=== PATIENT | male | born 1975 | race Two or more races ===

== ENCOUNTER 2019-01-01 08:25 | Inpatient (IN) | payer MEDICAID ==
[~2019-01-01] VITALS: Ht 170.2 cm; Wt 85.5 kg
[2019-01-01] MEDS ORDERED: LORAZEPAM 2MG/ML CPJ IV ONE (09:30)
[2019-01-01] MEDS ORDERED: SODIUM CHLORIDE 0.9% 1000ML BAG (SEPSIS BOLUS) IV ONE (09:30)
[2019-01-01 09:51] LABS: BASOPHILS % 0.3 % (0.0-2.0); EOSINOPHILS % 0.1 % (0.0-5.0); LYMPHOCYTES % 9.6 % (20.0-50.0); MEAN CORPUSCULAR HEMOGLOBIN 31.6 pg (28.0-32.0); MEAN CORPUSCULAR VOLUME 92.9 fL (80.0-94.0); MEAN PLATELET VOLUME 9.6 fl (7.4-10.4); MONOCYTES % 4.7 % (2.0-8.0); NEUTROPHILS % 85.3 % (40.0-76.0); PLATELET 310 x1000/uL (130-400); RED BLOOD CELL COUNT 4.42 mill/uL (4.7-6.1)
[2019-01-01 09:52] LABS: CHLORIDE 108 mEq/L (98-107)
[2019-01-01 09:56] LABS: ETHANOL BLOOD < 10 mg/dL
[2019-01-01] MEDS ORDERED: SODIUM CHLORIDE 0.9% 1,000 ML IV ONE (11:56)
[2019-01-01 12:11] LABS: CLARITY URINE CLEAR (CLEAR); COLOR URINE DARK YELLOW (YELLOW); KETONES URINE 4+ (NEGATIVE); LEUKOCYTE ESTERASE URINE NEGATIVE (NEGATIVE); NITRITE URINE NEGATIVE (NEGATIVE); OCCULT BLOOD URINE NEGATIVE (NEGATIVE); PROTEIN URINE TRACE (NEGATIVE); SPECIFIC GRAVITY URINE 1.037 (1.005-1.030)
[2019-01-01] MEDS ORDERED: CEFTRIAXONE 2 G PREMIX 50 ML IV ONE (12:30)
[2019-01-01] MEDS: VANCOMYCIN 1 G PREMIX 200 ML IV SCH ×2 (12:30→14:00)
[2019-01-01 12:38] LABS: *BARBITURATES SCREEN URINE NEGATIVE (NEGATIVE); *BENZODIAZEPINES SCREEN URINE NEGATIVE (NEGATIVE)
[2019-01-01 12:42] LABS: *AMPHETAMINES SCREEN URINE NEGATIVE (NEGATIVE)
[2019-01-01 12:44] LABS: METHADONE URINE SCREEN NEGATIVE (NEGATIVE)
[2019-01-01 12:45] LABS: *COCAINE SCREEN URINE NEGATIVE (NEGATIVE)
[2019-01-01 12:48] LABS: OPIATES URINE SCREEN NEGATIVE (NEGATIVE)
[2019-01-01 12:49] LABS: CREATINE KINASE 1009 IU/L (39-308)
[2019-01-01 12:49] LABS: CANNABINOID URINE SCREEN NEGATIVE (NEGATIVE); PHENCYCLIDINE URINE SCREEN NEGATIVE (NEGATIVE)
[2019-01-01] MEDS ORDERED: LIDOCAINE HCL 1% 20ML VIAL (Pyxis) INJ ONE (12:49)
[2019-01-01] MEDS ORDERED: ONDANSETRON HCL 4MG/2ML INJ IV PRN (13:45)
[2019-01-01] MEDS ORDERED: MAGNESIUM/ALUMINUM HYDROXIDE/SIMETHICONE 30ML UDC PO PRN (13:45)
[2019-01-01] MEDS ORDERED: ENOXAPARIN 40MG/0.4ML SYR SUBCUT SCH (13:45)
[2019-01-01] MEDS ORDERED: IPRATROPIUM/ALBUTEROL 0.5-3(2.5)MG/3ML NEB INH PRN (13:45)
[2019-01-01] MEDS ORDERED: CLONIDINE 0.1MG TABLET PO PRN (13:45)
[2019-01-01 14:18] LABS: GLUCOSE CSF 55 mg/dL (41-75)
[2019-01-01] MEDS ORDERED: ENOXAPARIN 40MG/0.4ML SYR SUBCUT NR (20:30)
[2019-01-01] MEDS: SODIUM CHLORIDE 0.9% 1,000 ML IV SCH (20:42)
[2019-01-01] MEDS: LORAZEPAM 2MG/ML CPJ IV PRN (21:48)
[2019-01-01 23:05] VITALS: BP 117/74
[2019-01-01 23:55] LABS: CREATINE KINASE MB FRACTION 2.7 ng/mL (0.5-3.6)
[2019-01-02] VITALS: BP 117/74
[2019-01-02] MEDS ORDERED: VANCOMYCIN 2,000 MG in DEXT 5% WATER 500 ML IV SCH (02:00)
[2019-01-02] MEDS: SODIUM CHLORIDE 0.9% 1,000 ML IV SCH (02:39)
[2019-01-02] MEDS: LORAZEPAM 2MG/ML CPJ IV PRN (03:00)
[2019-01-02 04:00] VITALS: BP 115/74
[2019-01-02] MEDS ORDERED: DOCU-138 PO (06:07)
[2019-01-02] MEDS ORDERED: RISP2TAB22 PO (06:07)
[2019-01-02] MEDS ORDERED: CYM20 PO (06:07)
[2019-01-02] MEDS ORDERED: MOM MT (06:07)
[2019-01-02] MEDS ORDERED: CLOZ100T31 PO (06:07)
[2019-01-02] MEDS ORDERED: PALI234D IM (06:07)
[2019-01-02] MEDS ORDERED: ACET-2853 PO (06:07)
[2019-01-02] MEDS ORDERED: TUSSL MT (06:07)
[2019-01-02] MEDS ORDERED: BENZ1TAB7 GT (06:07)
[2019-01-02] MEDS ORDERED: BACL-141 PO (06:07)
[2019-01-02] MEDS ORDERED: HYDR50CA PO (06:07)
[2019-01-02] MEDS ORDERED: MAG-55 MT (06:07)
[2019-01-02] MEDS ORDERED: TRAZ-212 PO (06:07)
[2019-01-02] MEDS ORDERED: DICY20TA11 PO (06:07)
[2019-01-02 06:12] LABS: CHLORIDE 111 mEq/L (98-107)
[2019-01-02 06:22] LABS: LDL CHOLESTEROL 51 mg/dL (5-100)
[2019-01-02 06:23] LABS: CREATINE KINASE 476 IU/L (39-308)
[2019-01-02 06:24] LABS: HDL CHOLESTEROL 31 mg/dL (40-59)
[2019-01-02 06:30] LABS: BASOPHILS % 0.3 % (0.0-2.0); EOSINOPHILS % 0.5 % (0.0-5.0); HEMATOCRIT. 36.8 % (42.0-52.0); HEMOGLOBIN. 12.5 g/dL (14.0-18.0); LYMPHOCYTES % 8.1 % (20.0-50.0); MEAN CORPUSCULAR HEMOGLOBIN 31.5 pg (28.0-32.0); MEAN CORPUSCULAR VOLUME 93.1 fL (80.0-94.0); MEAN PLATELET VOLUME 9.6 fl (7.4-10.4); MONOCYTES % 5.3 % (2.0-8.0); NEUTROPHILS % 85.8 % (40.0-76.0); PLATELET 273 x1000/uL (130-400); RED BLOOD CELL COUNT 3.95 mill/uL (4.7-6.1); RED CELL DISTRIBUTION WIDTH 13.1 % (11.6-14.6)
[2019-01-02 08:00] VITALS: BP 127/61
[2019-01-02] MEDS ORDERED: POTASSIUM CHLORIDE 20MEQ TABLET SR PO NR (08:00)
[2019-01-02] MEDS ORDERED: ENOXAPARIN 40MG/0.4ML SYR SUBCUT SCH (09:00)
[2019-01-02] MEDS ORDERED: VANCOMYCIN 1500MG in DEXTROSE 5% WATER 250ML IV SCH (10:00)
[2019-01-02] MEDS ORDERED: POTASSIUM CHLORIDE INJ 40 MEQ in DEXT 5% WATER 250 ML IV NR (10:30)
[2019-01-02 12:00] VITALS: BP 124/75
[2019-01-02] MEDS ORDERED: CEFTRIAXONE 1 G PREMIX 50 ML IV SCH (13:00)
[2019-01-02] MEDS: DEXT 5%/0.45% NACL 1000ML 1,000 ML IV SCH (13:56)
[2019-01-02 16:00] VITALS: BP 146/69
[2019-01-02] MEDS: ACETAMINOPHEN 650MG SUPP PR PRN (17:42)
[2019-01-02 18:05] LABS: PHOSPHORUS 2.6 mg/dL (2.5-4.9)
[2019-01-02 18:09] LABS: T4 FREE 1.53 ng/dL (0.76-1.46)
[2019-01-02] MEDS: VANCOMYCIN 1250MG in DEXTROSE 5% WATER 250ML IV SCH (18:10)
[2019-01-02 18:19] LABS: FOLIC ACID (FOLATE) SERUM 16.8 ng/mL (>5.38)
[2019-01-02 20:00] VITALS: BP 119/74
[2019-01-03] VITALS (34 sets, daily range): BP systolic 105–152; BP diastolic 60–96
[2019-01-03] MEDS: DEXT 5%/0.45% NACL 1000ML 1,000 ML IV SCH ×3 (02:27→15:30)
[2019-01-03] MEDS: VANCOMYCIN 1250MG in DEXTROSE 5% WATER 250ML IV SCH ×4 (04:18→19:00)
[2019-01-03] MEDS: LORAZEPAM 2MG/ML CPJ IV PRN (08:23)
[2019-01-03] MEDS ORDERED: LORAZEPAM 2MG/ML CPJ IV SCH (08:45)
[2019-01-03] MEDS ORDERED: LORAZEPAM 2MG/ML CPJ IV PRN (09:30)
[2019-01-03] MEDS ORDERED: IPRATROPIUM/ALBUTEROL 0.5-3(2.5)MG/3ML NEB HHN PRN (09:30)
[2019-01-03] MEDS: PROPOFOL 10MG/ML 100ML 100 ML IV PRN ×3 (10:20→20:37)
[2019-01-03 11:14] LABS: BG CARBOXYHEMOGLOBIN 0.6 % (0.5-1.5); BG DEOXYHEMOGLOBIN 5.4 % (0.0-5.0); BG FRACTION INSPIRED OXYGEN 50; BG HCO3 ACT 26.3 mmol/L (22.0-26.0); BG METHEMOGLOBIN 0.4 % (0.0-1.5); BG OXYGEN SATURATION 94.5 % (92.0-98.5); BG OXYHEMOGLOBIN 93.6 % (94.0-97.0); BG PCO2 44.6 mmHg (35.0-45.0); BG PH 7.389 (7.350-7.450); BG PO2 75.1 mmHg (75.0-100.0); BG SAMPLE SITE RIGHT RADIAL; BG TIDAL VOLUME(mL) 500 mL; BG VENT MODE VENT - A/C; BG VENT RATE 12 set
[2019-01-03] MEDS: IPRATROPIUM/ALBUTEROL 0.5-3(2.5)MG/3ML NEB HHN SCH ×3 (12:25→20:45)
[2019-01-03 12:36] LABS: BASOPHILS % 0.4 % (0.0-2.0); EOSINOPHILS % 0.8 % (0.0-5.0); HEMATOCRIT. 38.1 % (42.0-52.0); HEMOGLOBIN. 13.2 g/dL (14.0-18.0); LYMPHOCYTES % 14.3 % (20.0-50.0); MEAN CORPUSCULAR HEMOGLOBIN 31.9 pg (28.0-32.0); MEAN CORPUSCULAR VOLUME 92.3 fL (80.0-94.0); MEAN PLATELET VOLUME 9.4 fl (7.4-10.4); MONOCYTES % 5.9 % (2.0-8.0); NEUTROPHILS % 78.6 % (40.0-76.0); PLATELET 274 x1000/uL (130-400); RED BLOOD CELL COUNT 4.13 mill/uL (4.7-6.1); RED CELL DISTRIBUTION WIDTH 12.9 % (11.6-14.6)
[2019-01-03 12:39] LABS: CHLORIDE 105 mEq/L (98-107)
[2019-01-03] MEDS ORDERED: POTASSIUM CHLORIDE 20MEQ/PACKET NG SCH (13:45)
[2019-01-03] MEDS ORDERED: VECURONIUM BROMIDE 10 MG/VIAL IV ONE (14:10)
[2019-01-03] MEDS ORDERED: ETOMIDATE 2MG/ML 10ML VIAL IV ONE (14:10)
[2019-01-03] MEDS ORDERED: SODIUM CHLORIDE 0.9% 10ML VIAL ONE (14:10)
[2019-01-03] MEDS: CEFTRIAXONE 1 G PREMIX 50 ML IV SCH (15:29)
[2019-01-03] MEDS: VANCOMYCIN 1 G PREMIX 200 ML IV SCH (20:36)
[2019-01-04] VITALS (93 sets, daily range): BP systolic 106–164; BP diastolic 40–104
[2019-01-04] MEDS: IPRATROPIUM/ALBUTEROL 0.5-3(2.5)MG/3ML NEB HHN SCH ×4 (00:20→20:05)
[2019-01-04] MEDS: PROPOFOL 10MG/ML 100ML 100 ML IV PRN ×4 (02:22→19:31)
[2019-01-04] MEDS: DEXT 5%/0.45% NACL 1000ML 1,000 ML IV SCH ×2 (04:00→21:12)
[2019-01-04] MEDS: VANCOMYCIN 1 G PREMIX 200 ML IV SCH ×3 (04:04→21:12)
[2019-01-04 05:19] LABS: HIV SCREEN 4G Non Reactive (Non Reactive)
[2019-01-04 05:42] LABS: BASOPHILS % 0.5 % (0.0-2.0); EOSINOPHILS % 1.9 % (0.0-5.0); HEMATOCRIT. 38.3 % (42.0-52.0); HEMOGLOBIN. 13.3 g/dL (14.0-18.0); LYMPHOCYTES % 14.5 % (20.0-50.0); MEAN CORPUSCULAR HEMOGLOBIN 31.8 pg (28.0-32.0); MEAN CORPUSCULAR VOLUME 91.8 fL (80.0-94.0); MEAN PLATELET VOLUME 9.5 fl (7.4-10.4); MONOCYTES % 6.5 % (2.0-8.0); NEUTROPHILS % 76.6 % (40.0-76.0); PLATELET 248 x1000/uL (130-400); RED BLOOD CELL COUNT 4.17 mill/uL (4.7-6.1); RED CELL DISTRIBUTION WIDTH 12.9 % (11.6-14.6)
[2019-01-04 05:49] LABS: CHLORIDE 104 mEq/L (98-107)
[2019-01-04 05:59] LABS: CREATINE KINASE 190 IU/L (39-308)
[2019-01-04] MEDS ORDERED: POTASSIUM CHLORIDE 20MEQ/PACKET PO SCH (07:15)
[2019-01-04 07:55] LABS: BG BASE EXCESS 3.3 mmol/L (-2.0-2.0); BG CARBOXYHEMOGLOBIN 0.3 % (0.5-1.5); BG DEOXYHEMOGLOBIN 2.7 % (0.0-5.0); BG HCO3 ACT 27.1 mmol/L (22.0-26.0); BG METHEMOGLOBIN 0.2 % (0.0-1.5); BG OXYGEN SATURATION 97.3 % (92.0-98.5); BG OXYHEMOGLOBIN 96.8 % (94.0-97.0); BG PCO2 38.5 mmHg (35.0-45.0); BG PH 7.465 (7.350-7.450); BG PO2 94.9 mmHg (75.0-100.0); BG SAMPLE SITE RIGHT RADIAL; BG TIDAL VOLUME(mL) 500 mL; BG TOTAL HEMOGLOBIN 12.9 g/dL (12.0-18.0); BG VENT MODE VENT - A/C; BG VENT RATE 12 set
[2019-01-04] MEDS: PANTOPRAZOLE SODIUM 40 MG/VIAL IV SCH (08:14)
[2019-01-04] MEDS: ACETAMINOPHEN 325MG TABLET PO PRN (09:24)
[2019-01-04 09:59] LABS: CLARITY URINE CLEAR (CLEAR); COLOR URINE YELLOW (YELLOW); KETONES URINE TRACE (NEGATIVE); LEUKOCYTE ESTERASE URINE NEGATIVE (NEGATIVE); NITRITE URINE NEGATIVE (NEGATIVE); OCCULT BLOOD URINE 1+ (NEGATIVE); PROTEIN URINE NEGATIVE (NEGATIVE); SPECIFIC GRAVITY URINE 1.009 (1.005-1.030)
[2019-01-04] MEDS ORDERED: HYDROMORPHONE HCL/PF 2MG/ML CPJ IV PRN (12:00)
[2019-01-04] MEDS: RISPERIDONE 0.5MG TABLET PO SCH ×2 (12:07→21:12)
[2019-01-04] MEDS: CEFTRIAXONE 1 G PREMIX 50 ML IV SCH (14:16)
[2019-01-04] MEDS: LEVETIRACETAM 500 MG in SODIUM CHLORIDE 0.9% 100 ML IV SCH (21:12)
[2019-01-05] VITALS (92 sets, daily range): BP systolic 98–142; BP diastolic 56–91
[2019-01-05] MEDS: PROPOFOL 10MG/ML 100ML 100 ML IV PRN ×4 (01:04→19:05)
[2019-01-05] MEDS: IPRATROPIUM/ALBUTEROL 0.5-3(2.5)MG/3ML NEB HHN SCH ×4 (01:31→20:29)
[2019-01-05] MEDS: VANCOMYCIN 1 G PREMIX 200 ML IV SCH ×4 (05:41→21:17)
[2019-01-05 06:00] LABS: CHLORIDE 102 mEq/L (98-107)
[2019-01-05 06:07] LABS: HEMATOCRIT. 37.6 % (42.0-52.0); HEMOGLOBIN. 12.9 g/dL (14.0-18.0); MEAN CORPUSCULAR HEMOGLOBIN 31.4 pg (28.0-32.0); MEAN CORPUSCULAR VOLUME 91.7 fL (80.0-94.0); MEAN PLATELET VOLUME 9.6 fl (7.4-10.4); PLATELET 250 x1000/uL (130-400); RED CELL DISTRIBUTION WIDTH 12.9 % (11.6-14.6)
[2019-01-05 06:13] LABS: PHOSPHORUS 3.8 mg/dL (2.5-4.9)
[2019-01-05] MEDS ORDERED: POTASSIUM CHLORIDE 20MEQ/PACKET PO SCH (07:30)
[2019-01-05] MEDS: PANTOPRAZOLE SODIUM 40 MG/VIAL IV SCH (08:22)
[2019-01-05] MEDS: LEVETIRACETAM 500 MG in SODIUM CHLORIDE 0.9% 100 ML IV SCH ×2 (08:23→20:35)
[2019-01-05] MEDS: RISPERIDONE 0.5MG TABLET PO SCH ×2 (08:23→20:35)
[2019-01-05 08:50] LABS: PLATELET ESTIMATE NORMAL
[2019-01-05 09:06] LABS: WEST NILE VIRUS CSF IGG Negative (Negative)
[2019-01-05 09:26] LABS: BG BASE EXCESS 3.6 mmol/L (-2.0-2.0); BG CARBOXYHEMOGLOBIN 0.8 % (0.5-1.5); BG DEOXYHEMOGLOBIN 7.6 % (0.0-5.0); BG FRACTION INSPIRED OXYGEN 50; BG HCO3 ACT 28.1 mmol/L (22.0-26.0); BG METHEMOGLOBIN 0.2 % (0.0-1.5); BG OXYGEN SATURATION 92.3 % (92.0-98.5); BG OXYHEMOGLOBIN 91.4 % (94.0-97.0); BG PCO2 41.8 mmHg (35.0-45.0); BG PH 7.445 (7.350-7.450); BG PO2 61.7 mmHg (75.0-100.0); BG SAMPLE SITE RIGHT RADIAL; BG TIDAL VOLUME(mL) 500 mL; BG TOTAL HEMOGLOBIN 13.7 g/dL (12.0-18.0); BG VENT MODE VENT - A/C; BG VENT RATE 12 set
[2019-01-05 13:06] LABS: WEST NILE VIRUS CSF IGM Negative (Negative)
[2019-01-05] MEDS: CEFTRIAXONE 1 G PREMIX 50 ML IV SCH (15:05)
[2019-01-05] MEDS: METRONIDAZOLE 500 MG PREMIX 100 ML IV SCH ×2 (16:17→22:53)
[2019-01-06] VITALS (90 sets, daily range): BP systolic 100–165; BP diastolic 53–103
[2019-01-06] MEDS: IPRATROPIUM/ALBUTEROL 0.5-3(2.5)MG/3ML NEB HHN SCH ×4 (02:15→20:45)
[2019-01-06] MEDS: PROPOFOL 10MG/ML 100ML 100 ML IV PRN ×3 (03:06→21:26)
[2019-01-06] MEDS: METRONIDAZOLE 500 MG PREMIX 100 ML IV SCH ×4 (03:43→22:00)
[2019-01-06] MEDS: VANCOMYCIN 1 G PREMIX 200 ML IV SCH ×3 (05:45→21:23)
[2019-01-06 06:15] LABS: BASOPHILS % 0.3 % (0.0-2.0); HEMATOCRIT. 36.1 % (42.0-52.0); HEMOGLOBIN. 12.4 g/dL (14.0-18.0); LYMPHOCYTES % 10.5 % (20.0-50.0); MEAN CORPUSCULAR HEMOGLOBIN 31.9 pg (28.0-32.0); MEAN CORPUSCULAR VOLUME 92.4 fL (80.0-94.0); MEAN PLATELET VOLUME 9.3 fl (7.4-10.4); MONOCYTES % 5.7 % (2.0-8.0); NEUTROPHILS % 81.5 % (40.0-76.0); PLATELET 247 x1000/uL (130-400); RED CELL DISTRIBUTION WIDTH 13.3 % (11.6-14.6)
[2019-01-06 06:28] LABS: CHLORIDE 103 mEq/L (98-107)
[2019-01-06 06:34] LABS: PHOSPHORUS 3.5 mg/dL (2.5-4.9)
[2019-01-06] MEDS ORDERED: POTASSIUM CHLORIDE 20MEQ/PACKET PO SCH (07:30)
[2019-01-06] MEDS ORDERED: FENTANYL CITRATE/PF 500 MCG in SODIUM CHLORIDE 0.9% 40 ML IV PRN (08:00)
[2019-01-06] MEDS ORDERED: MIDAZOLAM HCL 100 MG in DEXT 5% WATER 80 ML IV PRN (08:00)
[2019-01-06 08:21] LABS: BG BASE EXCESS 3.5 mmol/L (-2.0-2.0); BG CARBOXYHEMOGLOBIN 0.6 % (0.5-1.5); BG DEOXYHEMOGLOBIN 1.4 % (0.0-5.0); BG METHEMOGLOBIN 0.2 % (0.0-1.5); BG OXYGEN SATURATION 98.6 % (92.0-98.5); BG OXYHEMOGLOBIN 97.8 % (94.0-97.0); BG PH 7.442 (7.350-7.450); BG PO2 130.6 mmHg (75.0-100.0); BG PRESSURE SUPPORT 14; BG SAMPLE SITE RIGHT RADIAL; BG TIDAL VOLUME(mL) 500 mL; BG TOTAL HEMOGLOBIN 12.3 g/dL (12.0-18.0); BG VENT MODE VENT - SIMV; BG VENT RATE 10 set
[2019-01-06] MEDS: RISPERIDONE 0.5MG TABLET PO SCH ×2 (08:31→21:23)
[2019-01-06] MEDS: PANTOPRAZOLE SODIUM 40 MG/VIAL IV SCH (08:31)
[2019-01-06] MEDS: LEVETIRACETAM 500 MG in SODIUM CHLORIDE 0.9% 100 ML IV SCH ×2 (08:31→21:22)
[2019-01-06] MEDS: CEFTRIAXONE 1 G PREMIX 50 ML IV SCH (14:10)
[2019-01-06 16:18] LABS: TOTAL IRON BINDING CAPACITY 223 ug/dL (250-450)
[2019-01-07] VITALS (89 sets, daily range): BP systolic 100–189; BP diastolic 61–142
[2019-01-07] MEDS: IPRATROPIUM/ALBUTEROL 0.5-3(2.5)MG/3ML NEB HHN SCH ×4 (01:26→21:55)
[2019-01-07] MEDS: METRONIDAZOLE 500 MG PREMIX 100 ML IV SCH ×4 (04:02→21:12)
[2019-01-07] MEDS: PROPOFOL 10MG/ML 100ML 100 ML IV PRN ×3 (04:26→23:42)
[2019-01-07 05:50] LABS: BASOPHILS % 0.3 % (0.0-2.0); EOSINOPHILS % 2.4 % (0.0-5.0); HEMATOCRIT. 36.6 % (42.0-52.0); HEMOGLOBIN. 12.4 g/dL (14.0-18.0); LYMPHOCYTES % 9.1 % (20.0-50.0); MEAN CORPUSCULAR HEMOGLOBIN 31.5 pg (28.0-32.0); MEAN CORPUSCULAR VOLUME 92.6 fL (80.0-94.0); MEAN PLATELET VOLUME 9.5 fl (7.4-10.4); MONOCYTES % 6.6 % (2.0-8.0); NEUTROPHILS % 81.6 % (40.0-76.0); PLATELET 251 x1000/uL (130-400); RED BLOOD CELL COUNT 3.95 mill/uL (4.7-6.1)
[2019-01-07 05:54] LABS: CHLORIDE 103 mEq/L (98-107)
[2019-01-07 06:06] LABS: PHOSPHORUS 2.5 mg/dL (2.5-4.9)
[2019-01-07] MEDS: VANCOMYCIN 1 G PREMIX 200 ML IV SCH ×2 (06:58→14:43)
[2019-01-07 08:18] LABS: BG BASE EXCESS 0.2 mmol/L (-2.0-2.0); BG CARBOXYHEMOGLOBIN 0.2 % (0.5-1.5); BG DEOXYHEMOGLOBIN 3.5 % (0.0-5.0); BG FRACTION INSPIRED OXYGEN 40; BG HCO3 ACT 24.3 mmol/L (22.0-26.0); BG METHEMOGLOBIN 0.3 % (0.0-1.5); BG OXYGEN SATURATION 96.5 % (92.0-98.5); BG PCO2 37.6 mmHg (35.0-45.0); BG PH 7.429 (7.350-7.450); BG PO2 91.4 mmHg (75.0-100.0); BG PRESSURE SUPPORT 12; BG SAMPLE SITE RIGHT BRACHIAL; BG TIDAL VOLUME(mL) 500 mL; BG TOTAL HEMOGLOBIN 12.3 g/dL (12.0-18.0); BG VENT MODE VENT - SIMV; BG VENT RATE 8 set
[2019-01-07] MEDS: DOCUSATE SODIUM 100MG CAPSULE PO SCH ×2 (10:00→21:11)
[2019-01-07] MEDS: DOCUSATE SODIUM SUGAR FREE 100MG/10ML UDC NG SCH (10:12)
[2019-01-07] MEDS: LEVETIRACETAM 500 MG in SODIUM CHLORIDE 0.9% 100 ML IV SCH ×2 (10:12→21:11)
[2019-01-07] MEDS: PANTOPRAZOLE SODIUM 40 MG/VIAL IV SCH (10:12)
[2019-01-07] MEDS: RISPERIDONE 0.5MG TABLET PO SCH ×2 (10:12→21:11)
[2019-01-07] MEDS: CEFTRIAXONE 1 G PREMIX 50 ML IV SCH (13:33)
[2019-01-07] MEDS: ACETYLCYSTEINE 100MG/ML 10% VIAL 4ML INH SCH (14:12)
[2019-01-07] MEDS ORDERED: LIDOCAINE HCL 1% 20ML VIAL (Pyxis) INJ ONE (14:50)
[2019-01-07] MEDS: FERROUS SULFATE 300MG/5ML UDC PO SCH (17:45)
[2019-01-08] VITALS (79 sets, daily range): BP systolic 103–155; BP diastolic 64–97
[2019-01-08] MEDS: IPRATROPIUM/ALBUTEROL 0.5-3(2.5)MG/3ML NEB HHN SCH ×5 (00:57→21:17)
[2019-01-08] MEDS: ACETYLCYSTEINE 100MG/ML 10% VIAL 4ML INH SCH ×3 (00:58→15:09)
[2019-01-08] MEDS: METRONIDAZOLE 500 MG PREMIX 100 ML IV SCH ×4 (03:44→21:57)
[2019-01-08] MEDS: PROPOFOL 10MG/ML 100ML 100 ML IV PRN ×2 (05:38→12:56)
[2019-01-08 06:07] LABS: CHLORIDE 104 mEq/L (98-107)
[2019-01-08 06:11] LABS: BASOPHILS % 0.4 % (0.0-2.0); EOSINOPHILS % 2.8 % (0.0-5.0); HEMATOCRIT. 37.2 % (42.0-52.0); HEMOGLOBIN. 12.7 g/dL (14.0-18.0); MEAN CORPUSCULAR HEMOGLOBIN 31.3 pg (28.0-32.0); MEAN CORPUSCULAR VOLUME 92.2 fL (80.0-94.0); MEAN PLATELET VOLUME 9.4 fl (7.4-10.4); MONOCYTES % 6.7 % (2.0-8.0); NEUTROPHILS % 77.1 % (40.0-76.0); PLATELET 295 x1000/uL (130-400); RED BLOOD CELL COUNT 4.04 mill/uL (4.7-6.1); RED CELL DISTRIBUTION WIDTH 12.8 % (11.6-14.6)
[2019-01-08] MEDS ORDERED: POTASSIUM CHLORIDE 20MEQ/PACKET PO SCH (06:30)
[2019-01-08] MEDS: FERROUS SULFATE 300MG/5ML UDC PO SCH ×3 (07:14→18:57)
[2019-01-08 08:41] LABS: BG BASE EXCESS 5.7 mmol/L (-2.0-2.0); BG CARBOXYHEMOGLOBIN 0.1 % (0.5-1.5); BG DEOXYHEMOGLOBIN 1.2 % (0.0-5.0); BG FRACTION INSPIRED OXYGEN 40; BG HCO3 ACT 30.5 mmol/L (22.0-26.0); BG OXYGEN SATURATION 98.8 % (92.0-98.5); BG OXYHEMOGLOBIN 98.7 % (94.0-97.0); BG PCO2 45.1 mmHg (35.0-45.0); BG PH 7.448 (7.350-7.450); BG PO2 153.1 mmHg (75.0-100.0); BG PRESSURE SUPPORT 12; BG SAMPLE SITE RIGHT RADIAL; BG TIDAL VOLUME(mL) 500 mL; BG TOTAL HEMOGLOBIN 12.5 g/dL (12.0-18.0); BG VENT MODE VENT - SIMV; BG VENT RATE 8 set
[2019-01-08] MEDS: PANTOPRAZOLE SODIUM 40 MG/VIAL IV SCH (08:52)
[2019-01-08] MEDS: LEVETIRACETAM 500 MG in SODIUM CHLORIDE 0.9% 100 ML IV SCH ×2 (08:53→21:18)
[2019-01-08] MEDS: DOCUSATE SODIUM SUGAR FREE 100MG/10ML UDC NG SCH (08:53)
[2019-01-08] MEDS: RISPERIDONE 0.5MG TABLET PO SCH ×2 (08:53→21:18)
[2019-01-08] MEDS: DOCUSATE SODIUM 100MG CAPSULE PO SCH ×2 (09:00→18:58)
[2019-01-08] MEDS: CEFTRIAXONE 1 G PREMIX 50 ML IV SCH (15:23)
[2019-01-09] VITALS (42 sets, daily range): BP systolic 101–153; BP diastolic 65–102
[2019-01-09] MEDS: IPRATROPIUM/ALBUTEROL 0.5-3(2.5)MG/3ML NEB HHN SCH ×6 (00:59→20:42)
[2019-01-09] MEDS: ACETYLCYSTEINE 100MG/ML 10% VIAL 4ML INH SCH ×3 (01:00→20:42)
[2019-01-09] MEDS: PROPOFOL 10MG/ML 100ML 100 ML IV PRN ×3 (04:09→22:44)
[2019-01-09] MEDS: METRONIDAZOLE 500 MG PREMIX 100 ML IV SCH ×4 (04:28→21:44)
[2019-01-09 05:50] LABS: BASOPHILS % 0.6 % (0.0-2.0); EOSINOPHILS % 3.5 % (0.0-5.0); HEMATOCRIT. 37.2 % (42.0-52.0); HEMOGLOBIN. 12.8 g/dL (14.0-18.0); LYMPHOCYTES % 19.2 % (20.0-50.0); MEAN CORPUSCULAR HEMOGLOBIN 31.6 pg (28.0-32.0); MEAN CORPUSCULAR VOLUME 91.9 fL (80.0-94.0); MEAN PLATELET VOLUME 8.9 fl (7.4-10.4); MONOCYTES % 8.3 % (2.0-8.0); NEUTROPHILS % 68.4 % (40.0-76.0); PLATELET 291 x1000/uL (130-400); RED BLOOD CELL COUNT 4.05 mill/uL (4.7-6.1); RED CELL DISTRIBUTION WIDTH 13.1 % (11.6-14.6)
[2019-01-09 05:51] LABS: CHLORIDE 105 mEq/L (98-107)
[2019-01-09 05:57] LABS: PHOSPHORUS 3.1 mg/dL (2.5-4.9)
[2019-01-09] MEDS: FERROUS SULFATE 300MG/5ML UDC PO SCH ×3 (06:38→17:19)
[2019-01-09] MEDS ORDERED: POTASSIUM CHLORIDE 20MEQ/PACKET PO SCH (06:45)
[2019-01-09 08:43] LABS: BG BASE EXCESS 2.3 mmol/L (-2.0-2.0); BG CARBOXYHEMOGLOBIN 0.3 % (0.5-1.5); BG DEOXYHEMOGLOBIN 1.6 % (0.0-5.0); BG FRACTION INSPIRED OXYGEN 40; BG HCO3 ACT 26.4 mmol/L (22.0-26.0); BG METHEMOGLOBIN 0.1 % (0.0-1.5); BG OXYGEN SATURATION 98.4 % (92.0-98.5); BG PH 7.448 (7.350-7.450); BG PO2 127.9 mmHg (75.0-100.0); BG PRESSURE SUPPORT 12; BG SAMPLE SITE LEFT RADIAL; BG TIDAL VOLUME(mL) 500 mL; BG TOTAL HEMOGLOBIN 12.6 g/dL (12.0-18.0); BG VENT MODE VENT - SIMV; BG VENT RATE 8 set
[2019-01-09] MEDS: DOCUSATE SODIUM 100MG CAPSULE PO SCH ×2 (09:00→17:00)
[2019-01-09] MEDS: DOCUSATE SODIUM SUGAR FREE 100MG/10ML UDC NG SCH (09:05)
[2019-01-09] MEDS: PANTOPRAZOLE SODIUM 40 MG/VIAL IV SCH (09:06)
[2019-01-09] MEDS: LEVETIRACETAM 500 MG in SODIUM CHLORIDE 0.9% 100 ML IV SCH ×2 (09:06→21:06)
[2019-01-09] MEDS: RISPERIDONE 0.5MG TABLET PO SCH ×2 (09:06→21:06)
[2019-01-09] MEDS: CEFTRIAXONE 1 G PREMIX 50 ML IV SCH (14:19)
[2019-01-09] MEDS: ENOXAPARIN 40MG/0.4ML SYR SUBCUT SCH (14:20)
[2019-01-09] MEDS: ACETAMINOPHEN 325MG TABLET PO PRN (15:49)
[2019-01-09] MEDS: LACTULOSE 20G/30ML UDC PO PRN (21:06)
[2019-01-10] VITALS (84 sets, daily range): BP systolic 102–153; BP diastolic 58–106
[2019-01-10] MEDS: IPRATROPIUM/ALBUTEROL 0.5-3(2.5)MG/3ML NEB HHN SCH ×6 (00:23→20:41)
[2019-01-10] MEDS: PROPOFOL 10MG/ML 100ML 100 ML IV PRN ×2 (03:37→09:17)
[2019-01-10] MEDS: METRONIDAZOLE 500 MG PREMIX 100 ML IV SCH ×4 (03:37→22:13)
[2019-01-10 05:30] LABS: BASOPHILS % 0.4 % (0.0-2.0); HEMATOCRIT. 36.7 % (42.0-52.0); HEMOGLOBIN. 12.7 g/dL (14.0-18.0); MEAN CORPUSCULAR HEMOGLOBIN 31.7 pg (28.0-32.0); MEAN CORPUSCULAR VOLUME 91.8 fL (80.0-94.0); MEAN PLATELET VOLUME 9.2 fl (7.4-10.4); MONOCYTES % 6.5 % (2.0-8.0); NEUTROPHILS % 82.1 % (40.0-76.0); PLATELET 303 x1000/uL (130-400); RED CELL DISTRIBUTION WIDTH 12.8 % (11.6-14.6)
[2019-01-10 06:17] LABS: CHLORIDE 108 mEq/L (98-107)
[2019-01-10] MEDS: FERROUS SULFATE 300MG/5ML UDC PO SCH ×3 (06:23→17:01)
[2019-01-10 06:25] LABS: PHOSPHORUS 2.5 mg/dL (2.5-4.9)
[2019-01-10] MEDS ORDERED: POTASSIUM CHLORIDE 20MEQ/PACKET PO NR (07:30)
[2019-01-10] MEDS: DOCUSATE SODIUM 100MG CAPSULE PO SCH ×2 (09:00→16:03)
[2019-01-10 09:01] LABS: BG BASE EXCESS 6.2 mmol/L (-2.0-2.0); BG CARBOXYHEMOGLOBIN 0.2 % (0.5-1.5); BG DEOXYHEMOGLOBIN 1.7 % (0.0-5.0); BG FRACTION INSPIRED OXYGEN 40; BG HCO3 ACT 30.7 mmol/L (22.0-26.0); BG METHEMOGLOBIN 0.3 % (0.0-1.5); BG OXYGEN SATURATION 98.3 % (92.0-98.5); BG OXYHEMOGLOBIN 97.8 % (94.0-97.0); BG PCO2 43.8 mmHg (35.0-45.0); BG PH 7.464 (7.350-7.450); BG PO2 142.2 mmHg (75.0-100.0); BG PRESSURE SUPPORT 12; BG SAMPLE SITE RIGHT RADIAL; BG TIDAL VOLUME(mL) 500 mL; BG TOTAL HEMOGLOBIN 13.1 g/dL (12.0-18.0); BG VENT MODE VENT - SIMV; BG VENT RATE 8 set
[2019-01-10] MEDS: LEVETIRACETAM 500 MG in SODIUM CHLORIDE 0.9% 100 ML IV SCH ×2 (09:17→21:11)
[2019-01-10] MEDS: RISPERIDONE 0.5MG TABLET PO SCH ×2 (09:17→21:11)
[2019-01-10] MEDS: DOCUSATE SODIUM SUGAR FREE 100MG/10ML UDC NG SCH (09:17)
[2019-01-10] MEDS: PANTOPRAZOLE SODIUM 40 MG/VIAL IV SCH (09:17)
[2019-01-10] MEDS: ACETYLCYSTEINE 100MG/ML 10% VIAL 4ML INH SCH (09:18)
[2019-01-10] MEDS: ENOXAPARIN 40MG/0.4ML SYR SUBCUT SCH (09:18)
[2019-01-10] MEDS: CEFTRIAXONE 1 G PREMIX 50 ML IV SCH (16:02)
[2019-01-10 21:04] LABS: CLARITY URINE TURBID (CLEAR); COLOR URINE DARK YELLOW (YELLOW); KETONES URINE NEGATIVE (NEGATIVE); LEUKOCYTE ESTERASE URINE 1+ (NEGATIVE); NITRITE URINE NEGATIVE (NEGATIVE); OCCULT BLOOD URINE 3+ (NEGATIVE); PH URINE 6.5 (4.5-8.0); PROTEIN URINE 1+ (NEGATIVE); SPECIFIC GRAVITY URINE 1.021 (1.005-1.030)
[2019-01-11] VITALS (74 sets, daily range): BP systolic 98–155; BP diastolic 60–108
[2019-01-11] MEDS: IPRATROPIUM/ALBUTEROL 0.5-3(2.5)MG/3ML NEB HHN SCH ×7 (00:14→21:11)
[2019-01-11] MEDS: ACETYLCYSTEINE 100MG/ML 10% VIAL 4ML INH SCH ×2 (00:15→21:11)
[2019-01-11] MEDS: METRONIDAZOLE 500 MG PREMIX 100 ML IV SCH ×2 (03:53→10:00)
[2019-01-11 05:51] LABS: BASOPHILS % 0.4 % (0.0-2.0); EOSINOPHILS % 1.7 % (0.0-5.0); HEMATOCRIT. 37.1 % (42.0-52.0); HEMOGLOBIN. 12.7 g/dL (14.0-18.0); LYMPHOCYTES % 14.3 % (20.0-50.0); MEAN CORPUSCULAR HEMOGLOBIN 31.4 pg (28.0-32.0); MEAN CORPUSCULAR VOLUME 92.1 fL (80.0-94.0); MONOCYTES % 7.8 % (2.0-8.0); NEUTROPHILS % 75.8 % (40.0-76.0); PLATELET 319 x1000/uL (130-400); RED BLOOD CELL COUNT 4.03 mill/uL (4.7-6.1)
[2019-01-11] MEDS: FERROUS SULFATE 300MG/5ML UDC PO SCH ×3 (06:03→17:24)
[2019-01-11 06:06] LABS: CHLORIDE 106 mEq/L (98-107)
[2019-01-11 06:20] LABS: PHOSPHORUS 3.1 mg/dL (2.5-4.9)
[2019-01-11] MEDS: DOCUSATE SODIUM 100MG CAPSULE PO SCH ×2 (09:00→15:27)
[2019-01-11] MEDS: RISPERIDONE 0.5MG TABLET PO SCH ×2 (09:59→21:03)
[2019-01-11] MEDS: DOCUSATE SODIUM SUGAR FREE 100MG/10ML UDC NG SCH (09:59)
[2019-01-11] MEDS: PANTOPRAZOLE SODIUM 40 MG/VIAL IV SCH (09:59)
[2019-01-11] MEDS: LEVETIRACETAM 500 MG in SODIUM CHLORIDE 0.9% 100 ML IV SCH ×2 (09:59→21:03)
[2019-01-11] MEDS: ENOXAPARIN 40MG/0.4ML SYR SUBCUT SCH (10:00)
[2019-01-11 11:22] LABS: BG BASE EXCESS 6.3 mmol/L (-2.0-2.0); BG CARBOXYHEMOGLOBIN 0.3 % (0.5-1.5); BG DEOXYHEMOGLOBIN 1.1 % (0.0-5.0); BG HCO3 ACT 30.7 mmol/L (22.0-26.0); BG METHEMOGLOBIN 0.4 % (0.0-1.5); BG OXYGEN SATURATION 98.9 % (92.0-98.5); BG OXYHEMOGLOBIN 98.2 % (94.0-97.0); BG PCO2 43.1 mmHg (35.0-45.0); BG PO2 196.7 mmHg (75.0-100.0); BG SAMPLE SITE RIGHT RADIAL; BG TOTAL HEMOGLOBIN 12.6 g/dL (12.0-18.0); BG VENT MODE T-TUBE
[2019-01-11] MEDS: POLYETHYLENE GLYCOL 3350 (17GM) 1 DOSE PACK PO SCH (12:38)
[2019-01-12] VITALS (85 sets, daily range): BP systolic 104–153; BP diastolic 66–97
[2019-01-12] MEDS: IPRATROPIUM/ALBUTEROL 0.5-3(2.5)MG/3ML NEB HHN SCH ×5 (00:22→21:32)
[2019-01-12] MEDS: ACETYLCYSTEINE 100MG/ML 10% VIAL 4ML INH SCH ×3 (01:20→16:00)
[2019-01-12] MEDS: FERROUS SULFATE 300MG/5ML UDC PO SCH ×3 (06:25→18:04)
[2019-01-12 06:48] LABS: CHLORIDE 106 mEq/L (98-107)
[2019-01-12 06:55] LABS: BASOPHILS % 0.6 % (0.0-2.0); EOSINOPHILS % 1.3 % (0.0-5.0); HEMATOCRIT. 37.5 % (42.0-52.0); LYMPHOCYTES % 10.4 % (20.0-50.0); MEAN CORPUSCULAR HEMOGLOBIN 31.9 pg (28.0-32.0); MEAN CORPUSCULAR VOLUME 91.9 fL (80.0-94.0); MEAN PLATELET VOLUME 8.9 fl (7.4-10.4); MONOCYTES % 6.9 % (2.0-8.0); NEUTROPHILS % 80.8 % (40.0-76.0); PLATELET 346 x1000/uL (130-400); RED BLOOD CELL COUNT 4.08 mill/uL (4.7-6.1)
[2019-01-12] MEDS ORDERED: POTASSIUM CHLORIDE 20MEQ/PACKET PO NR (07:15)
[2019-01-12] MEDS: DOCUSATE SODIUM 100MG CAPSULE PO SCH ×2 (09:00→17:00)
[2019-01-12] MEDS: RISPERIDONE 0.5MG TABLET PO SCH ×2 (10:06→21:06)
[2019-01-12] MEDS: DOCUSATE SODIUM SUGAR FREE 100MG/10ML UDC NG SCH ×2 (10:06→18:04)
[2019-01-12] MEDS: ENOXAPARIN 40MG/0.4ML SYR SUBCUT SCH (10:07)
[2019-01-12] MEDS: PANTOPRAZOLE SODIUM 40 MG/VIAL IV SCH (10:07)
[2019-01-12] MEDS: POLYETHYLENE GLYCOL 3350 (17GM) 1 DOSE PACK PO SCH (10:08)
[2019-01-12] MEDS: LEVETIRACETAM 500 MG in SODIUM CHLORIDE 0.9% 100 ML IV SCH ×2 (13:56→21:06)
[2019-01-12] MEDS ORDERED: ATROPINE SULFATE 1% OPHTH 2ML SL SCH (14:00)
[2019-01-12 17:06] LABS: COXSACKIE B VIRUS TYPE 1 <1:10 (<1:10); COXSACKIE B VIRUS TYPE 2 <1:10 (<1:10); COXSACKIE B VIRUS TYPE 3 <1:10 (<1:10); COXSACKIE B VIRUS TYPE 4 <1:10 (<1:10); COXSACKIE B VIRUS TYPE 5 <1:10 (<1:10)
[2019-01-12] MEDS ORDERED: CEFTRIAXONE 1 G PREMIX 50 ML IV SCH (23:00)
[2019-01-13] VITALS (68 sets, daily range): BP systolic 115–152; BP diastolic 50–102
[2019-01-13] MEDS: IPRATROPIUM/ALBUTEROL 0.5-3(2.5)MG/3ML NEB HHN SCH ×6 (01:20→20:45)
[2019-01-13] MEDS: ACETYLCYSTEINE 100MG/ML 10% VIAL 4ML INH SCH ×2 (01:20→17:46)
[2019-01-13 05:32] LABS: BASOPHILS % 0.5 % (0.0-2.0); CHLORIDE 107 mEq/L (98-107); EOSINOPHILS % 1.4 % (0.0-5.0); HEMATOCRIT. 37.6 % (42.0-52.0); LYMPHOCYTES % 14.8 % (20.0-50.0); MEAN CORPUSCULAR HEMOGLOBIN 31.7 pg (28.0-32.0); MEAN CORPUSCULAR VOLUME 91.9 fL (80.0-94.0); MEAN PLATELET VOLUME 8.6 fl (7.4-10.4); NEUTROPHILS % 77.3 % (40.0-76.0); PLATELET 334 x1000/uL (130-400); RED CELL DISTRIBUTION WIDTH 12.9 % (11.6-14.6)
[2019-01-13 05:41] LABS: PHOSPHORUS 3.4 mg/dL (2.5-4.9)
[2019-01-13] MEDS: FERROUS SULFATE 300MG/5ML UDC PO SCH ×3 (06:16→18:37)
[2019-01-13] MEDS: DOCUSATE SODIUM 100MG CAPSULE PO SCH ×2 (09:00→17:00)
[2019-01-13] MEDS: POLYETHYLENE GLYCOL 3350 (17GM) 1 DOSE PACK PO SCH (09:54)
[2019-01-13] MEDS: PANTOPRAZOLE SODIUM 40 MG/VIAL IV SCH (09:54)
[2019-01-13] MEDS: DOCUSATE SODIUM SUGAR FREE 100MG/10ML UDC NG SCH ×3 (09:54→18:38)
[2019-01-13] MEDS: LEVETIRACETAM 500 MG in SODIUM CHLORIDE 0.9% 100 ML IV SCH ×2 (09:54→21:25)
[2019-01-13] MEDS: ENOXAPARIN 40MG/0.4ML SYR SUBCUT SCH (09:55)
[2019-01-13] MEDS: RISPERIDONE 0.5MG TABLET PO SCH ×2 (09:55→21:25)
[2019-01-13] MEDS ORDERED: ATROPINE SULFATE 1% OPHTH 2ML SL PRN (12:00)
[2019-01-14] VITALS (11 sets, daily range): BP systolic 109–144; BP diastolic 72–89
[2019-01-14] MEDS: IPRATROPIUM/ALBUTEROL 0.5-3(2.5)MG/3ML NEB HHN SCH ×4 (01:19→21:38)
[2019-01-14] MEDS: ACETYLCYSTEINE 100MG/ML 10% VIAL 4ML INH SCH ×2 (01:22→07:32)
[2019-01-14 06:02] LABS: CHLORIDE 108 mEq/L (98-107)
[2019-01-14 06:03] LABS: BASOPHILS % 0.4 % (0.0-2.0); EOSINOPHILS % 0.6 % (0.0-5.0); HEMATOCRIT. 38.9 % (42.0-52.0); HEMOGLOBIN. 13.3 g/dL (14.0-18.0); LYMPHOCYTES % 8.8 % (20.0-50.0); MEAN CORPUSCULAR HEMOGLOBIN 31.8 pg (28.0-32.0); MEAN CORPUSCULAR VOLUME 93.1 fL (80.0-94.0); MEAN PLATELET VOLUME 8.9 fl (7.4-10.4); MONOCYTES % 4.7 % (2.0-8.0); NEUTROPHILS % 85.5 % (40.0-76.0); PLATELET 347 x1000/uL (130-400); RED BLOOD CELL COUNT 4.18 mill/uL (4.7-6.1)
[2019-01-14] MEDS: PANTOPRAZOLE SODIUM 40 MG/VIAL IV SCH (08:51)
[2019-01-14] MEDS: LEVETIRACETAM 500 MG in SODIUM CHLORIDE 0.9% 100 ML IV SCH ×2 (08:52→20:32)
[2019-01-14] MEDS: POLYETHYLENE GLYCOL 3350 (17GM) 1 DOSE PACK PO SCH (08:52)
[2019-01-14] MEDS: ENOXAPARIN 40MG/0.4ML SYR SUBCUT SCH (08:54)
[2019-01-14] MEDS: FERROUS SULFATE 300MG/5ML UDC PO SCH ×3 (08:55→18:38)
[2019-01-14] MEDS: DOCUSATE SODIUM 100MG CAPSULE PO SCH ×2 (08:57→17:00)
[2019-01-14] MEDS: DOCUSATE SODIUM SUGAR FREE 100MG/10ML UDC NG SCH (08:58)
[2019-01-14] MEDS: RISPERIDONE 0.5MG TABLET PO SCH ×2 (09:14→20:32)
[2019-01-14] MEDS: ACETAMINOPHEN 650MG SUPP PR PRN (16:30)
[2019-01-15] VITALS (13 sets, daily range): BP systolic 118–148; BP diastolic 63–93
[2019-01-15] MEDS: IPRATROPIUM/ALBUTEROL 0.5-3(2.5)MG/3ML NEB HHN SCH ×6 (01:46→21:38)
[2019-01-15 06:39] LABS: BASOPHILS % 0.5 % (0.0-2.0); EOSINOPHILS % 0.6 % (0.0-5.0); HEMATOCRIT. 40.5 % (42.0-52.0); HEMOGLOBIN. 13.6 g/dL (14.0-18.0); LYMPHOCYTES % 9.5 % (20.0-50.0); MEAN CORPUSCULAR HEMOGLOBIN 31.2 pg (28.0-32.0); MEAN CORPUSCULAR VOLUME 92.6 fL (80.0-94.0); MEAN PLATELET VOLUME 9.2 fl (7.4-10.4); MONOCYTES % 4.6 % (2.0-8.0); NEUTROPHILS % 84.8 % (40.0-76.0); PLATELET 301 x1000/uL (130-400); RED BLOOD CELL COUNT 4.37 mill/uL (4.7-6.1); RED CELL DISTRIBUTION WIDTH 12.8 % (11.6-14.6)
[2019-01-15 06:57] LABS: CHLORIDE 108 mEq/L (98-107)
[2019-01-15] MEDS ORDERED: LORAZEPAM 2MG/ML CPJ IM PRN (08:45)
[2019-01-15] MEDS: DOCUSATE SODIUM 100MG CAPSULE PO SCH ×2 (09:00→16:47)
[2019-01-15] MEDS: LEVETIRACETAM 500 MG in SODIUM CHLORIDE 0.9% 100 ML IV SCH (09:01)
[2019-01-15] MEDS: POLYETHYLENE GLYCOL 3350 (17GM) 1 DOSE PACK PO SCH (09:01)
[2019-01-15] MEDS: PANTOPRAZOLE SODIUM 40 MG/VIAL IV SCH (09:01)
[2019-01-15] MEDS: RISPERIDONE 0.5MG TABLET PO SCH ×2 (09:01→20:10)
[2019-01-15] MEDS: DOCUSATE SODIUM SUGAR FREE 100MG/10ML UDC NG SCH (09:01)
[2019-01-15] MEDS: ENOXAPARIN 40MG/0.4ML SYR SUBCUT SCH (09:02)
[2019-01-15] MEDS: FERROUS SULFATE 300MG/5ML UDC PO SCH ×3 (09:31→17:31)
[2019-01-15] MEDS: LORAZEPAM 2MG/ML CPJ IV PRN ×3 (14:35→23:04)
[2019-01-15] MEDS ORDERED: PHENYTOIN 10MG/ML SYR IV ONE (16:30)
[2019-01-15] MEDS ORDERED: PHENYTOIN SODIUM 1000MG in SODIUM CHLORIDE 0.9% 100ML IV SCH (17:00)
[2019-01-15] MEDS: LEVETIRACETAM 1,000 MG in SODIUM CHLORIDE 0.9% 100 ML IV SCH (20:10)
[2019-01-16] VITALS (22 sets, daily range): BP systolic 108–153; BP diastolic 58–96
[2019-01-16] MEDS: ACETAMINOPHEN 325MG TABLET PO PRN ×2 (00:46→13:01)
[2019-01-16] MEDS: IPRATROPIUM/ALBUTEROL 0.5-3(2.5)MG/3ML NEB HHN SCH ×4 (01:48→20:35)
[2019-01-16 07:25] LABS: BASOPHILS % 0.7 % (0.0-2.0); EOSINOPHILS % 1.5 % (0.0-5.0); HEMATOCRIT. 39.2 % (42.0-52.0); HEMOGLOBIN. 13.3 g/dL (14.0-18.0); LYMPHOCYTES % 13.4 % (20.0-50.0); MEAN CORPUSCULAR HEMOGLOBIN 31.5 pg (28.0-32.0); MEAN CORPUSCULAR VOLUME 92.4 fL (80.0-94.0); MEAN PLATELET VOLUME 9.3 fl (7.4-10.4); MONOCYTES % 5.3 % (2.0-8.0); NEUTROPHILS % 79.1 % (40.0-76.0); PLATELET 286 x1000/uL (130-400); RED BLOOD CELL COUNT 4.24 mill/uL (4.7-6.1); RED CELL DISTRIBUTION WIDTH 12.6 % (11.6-14.6)
[2019-01-16] MEDS: PANTOPRAZOLE SODIUM 40 MG/VIAL IV SCH (08:19)
[2019-01-16] MEDS: DOCUSATE SODIUM SUGAR FREE 100MG/10ML UDC NG SCH (08:19)
[2019-01-16] MEDS: LORAZEPAM 2MG/ML CPJ IV PRN (08:19)
[2019-01-16] MEDS: POLYETHYLENE GLYCOL 3350 (17GM) 1 DOSE PACK PO SCH (08:20)
[2019-01-16] MEDS: RISPERIDONE 0.5MG TABLET PO SCH ×2 (08:20→21:02)
[2019-01-16] MEDS: ENOXAPARIN 40MG/0.4ML SYR SUBCUT SCH (08:20)
[2019-01-16] MEDS: DOCUSATE SODIUM 100MG CAPSULE PO SCH ×2 (08:24→16:25)
[2019-01-16 09:04] LABS: CHLORIDE 108 mEq/L (98-107)
[2019-01-16] MEDS: LEVETIRACETAM 1,000 MG in SODIUM CHLORIDE 0.9% 100 ML IV SCH ×2 (09:37→21:28)
[2019-01-16] MEDS ORDERED: POTASSIUM CHLORIDE 20MEQ/PACKET NG NR (10:45)
[2019-01-16] MEDS ORDERED: PHENYTOIN SODIUM 600 MG in SODIUM CHLORIDE 0.9% 100 ML IV NR (11:30)
[2019-01-16] MEDS: FERROUS SULFATE 300MG/5ML UDC PO SCH ×2 (11:38→16:49)
[2019-01-16] MEDS ORDERED: LORAZEPAM 2MG/ML CPJ IV PRN (12:45)
[2019-01-16] MEDS: ACETAMINOPHEN 650MG SUPP PR PRN (16:49)
[2019-01-17] VITALS (28 sets, daily range): BP systolic 109–154; BP diastolic 70–98
[2019-01-17] MEDS: IPRATROPIUM/ALBUTEROL 0.5-3(2.5)MG/3ML NEB HHN SCH ×4 (02:36→21:50)
[2019-01-17 05:47] LABS: BASOPHILS % 0.5 % (0.0-2.0); EOSINOPHILS % 0.6 % (0.0-5.0); HEMATOCRIT. 40.4 % (42.0-52.0); HEMOGLOBIN. 13.6 g/dL (14.0-18.0); LYMPHOCYTES % 12.8 % (20.0-50.0); MEAN CORPUSCULAR HEMOGLOBIN 31.4 pg (28.0-32.0); MEAN CORPUSCULAR VOLUME 93.2 fL (80.0-94.0); MEAN PLATELET VOLUME 9.7 fl (7.4-10.4); MONOCYTES % 5.5 % (2.0-8.0); NEUTROPHILS % 80.6 % (40.0-76.0); PLATELET 279 x1000/uL (130-400); RED BLOOD CELL COUNT 4.33 mill/uL (4.7-6.1); RED CELL DISTRIBUTION WIDTH 12.7 % (11.6-14.6)
[2019-01-17] MEDS: FERROUS SULFATE 300MG/5ML UDC PO SCH ×3 (06:06→17:35)
[2019-01-17 06:32] LABS: CHLORIDE 110 mEq/L (98-107)
[2019-01-17] MEDS ORDERED: POTASSIUM CHLORIDE 20MEQ/PACKET PO ONE (07:15)
[2019-01-17] MEDS: PANTOPRAZOLE SODIUM 40 MG/VIAL IV SCH (08:00)
[2019-01-17] MEDS: POLYETHYLENE GLYCOL 3350 (17GM) 1 DOSE PACK PO SCH (08:01)
[2019-01-17] MEDS: ENOXAPARIN 40MG/0.4ML SYR SUBCUT SCH (08:01)
[2019-01-17] MEDS: DOCUSATE SODIUM SUGAR FREE 100MG/10ML UDC NG SCH (08:01)
[2019-01-17] MEDS: RISPERIDONE 0.5MG TABLET PO SCH ×2 (08:01→22:39)
[2019-01-17] MEDS: LEVETIRACETAM 1,000 MG in SODIUM CHLORIDE 0.9% 100 ML IV SCH ×2 (09:40→22:57)
[2019-01-17] MEDS ORDERED: KCL 20MEQ/100ML PREMIX 100 ML IV SCH (10:00)
[2019-01-17] MEDS ORDERED: PHENYTOIN SODIUM 100MG/2ML VIAL IV ONE (11:15)
[2019-01-17] MEDS ORDERED: PHENYTOIN SODIUM 700 MG in SODIUM CHLORIDE 0.9% 100 ML IV NR (11:30)
[2019-01-17] MEDS: CEFEPIME 2,000 MG in DEXT 5% WATER 100 ML IV SCH (12:44)
[2019-01-17] MEDS: ACETAMINOPHEN 325MG TABLET PO PRN (23:22)
[2019-01-18 00:19] VITALS: BP 116/76
[2019-01-18] MEDS: CEFEPIME 2,000 MG in DEXT 5% WATER 100 ML IV SCH ×2 (01:07→14:19)
[2019-01-18] MEDS: IPRATROPIUM/ALBUTEROL 0.5-3(2.5)MG/3ML NEB HHN SCH ×4 (02:16→20:35)
[2019-01-18 04:39] VITALS: BP 129/77
[2019-01-18] MEDS: ACETAMINOPHEN 325MG TABLET PO PRN (06:36)
[2019-01-18 07:16] LABS: CHLORIDE 110 mEq/L (98-107)
[2019-01-18 07:19] LABS: BASOPHILS % 0.4 % (0.0-2.0); EOSINOPHILS % 0.3 % (0.0-5.0); HEMATOCRIT. 40.1 % (42.0-52.0); HEMOGLOBIN. 13.7 g/dL (14.0-18.0); LYMPHOCYTES % 12.7 % (20.0-50.0); MEAN CORPUSCULAR HEMOGLOBIN 31.4 pg (28.0-32.0); MEAN PLATELET VOLUME 10.2 fl (7.4-10.4); MONOCYTES % 5.6 % (2.0-8.0); PLATELET 280 x1000/uL (130-400); RED BLOOD CELL COUNT 4.37 mill/uL (4.7-6.1); RED CELL DISTRIBUTION WIDTH 13.2 % (11.6-14.6)
[2019-01-18 07:35] LABS: PHOSPHORUS 3.5 mg/dL (2.5-4.9)
[2019-01-18 08:00] VITALS: BP 116/85
[2019-01-18] MEDS: DOCUSATE SODIUM SUGAR FREE 100MG/10ML UDC NG SCH (08:39)
[2019-01-18] MEDS: RISPERIDONE 0.5MG TABLET PO SCH ×2 (08:39→20:47)
[2019-01-18] MEDS: PANTOPRAZOLE SODIUM 40 MG/VIAL IV SCH (08:39)
[2019-01-18] MEDS: POLYETHYLENE GLYCOL 3350 (17GM) 1 DOSE PACK PO SCH (08:39)
[2019-01-18] MEDS: FERROUS SULFATE 300MG/5ML UDC PO SCH ×3 (08:39→17:50)
[2019-01-18] MEDS: ENOXAPARIN 40MG/0.4ML SYR SUBCUT SCH (08:40)
[2019-01-18] MEDS ORDERED: PHENYTOIN SODIUM 800 MG in SODIUM CHLORIDE 0.9% 100 ML IV SCH (10:00)
[2019-01-18] MEDS: LEVETIRACETAM 1,000 MG in SODIUM CHLORIDE 0.9% 100 ML IV SCH ×2 (11:05→21:47)
[2019-01-18 11:53] VITALS: BP 136/93
[2019-01-18 15:29] VITALS: BP 110/73
[2019-01-18 17:51] LABS: CLARITY URINE CLEAR (CLEAR); COLOR URINE DARK YELLOW (YELLOW); KETONES URINE NEGATIVE (NEGATIVE); LEUKOCYTE ESTERASE URINE NEGATIVE (NEGATIVE); NITRITE URINE NEGATIVE (NEGATIVE); OCCULT BLOOD URINE 2+ (NEGATIVE); PROTEIN URINE NEGATIVE (NEGATIVE); SPECIFIC GRAVITY URINE 1.031 (1.005-1.030)
[2019-01-18 20:00] VITALS: BP 134/87
[2019-01-19] VITALS: BP 128/83
[2019-01-19] MEDS: CEFEPIME 2,000 MG in DEXT 5% WATER 100 ML IV SCH ×2 (00:03→12:31)
[2019-01-19] MEDS: ACETAMINOPHEN 650MG SUPP PR PRN (00:03)
[2019-01-19] MEDS: IPRATROPIUM/ALBUTEROL 0.5-3(2.5)MG/3ML NEB HHN SCH ×4 (01:07→20:22)
[2019-01-19 04:00] VITALS: BP 128/80
[2019-01-19 06:33] LABS: BASOPHILS % 0.8 % (0.0-2.0); EOSINOPHILS % 0.8 % (0.0-5.0); HEMATOCRIT. 41.1 % (42.0-52.0); HEMOGLOBIN. 13.8 g/dL (14.0-18.0); LYMPHOCYTES % 15.4 % (20.0-50.0); MEAN CORPUSCULAR HEMOGLOBIN 31.2 pg (28.0-32.0); MEAN PLATELET VOLUME 10.4 fl (7.4-10.4); MONOCYTES % 7.1 % (2.0-8.0); NEUTROPHILS % 75.9 % (40.0-76.0); PLATELET 257 x1000/uL (130-400); RED BLOOD CELL COUNT 4.42 mill/uL (4.7-6.1); RED CELL DISTRIBUTION WIDTH 12.9 % (11.6-14.6)
[2019-01-19] MEDS: FERROUS SULFATE 300MG/5ML UDC PO SCH ×3 (07:50→17:53)
[2019-01-19 08:00] VITALS: BP 138/91
[2019-01-19 08:04] LABS: CHLORIDE 110 mEq/L (98-107)
[2019-01-19] MEDS: ENOXAPARIN 40MG/0.4ML SYR SUBCUT SCH (08:34)
[2019-01-19] MEDS: PANTOPRAZOLE SODIUM 40 MG/VIAL IV SCH (08:34)
[2019-01-19] MEDS: POLYETHYLENE GLYCOL 3350 (17GM) 1 DOSE PACK PO SCH (09:00)
[2019-01-19] MEDS: RISPERIDONE 0.5MG TABLET PO SCH ×2 (09:00→20:42)
[2019-01-19] MEDS: DOCUSATE SODIUM SUGAR FREE 100MG/10ML UDC NG SCH (09:00)
[2019-01-19] MEDS ORDERED: BACTERIOSTATIC SODIUM CHLORIDE 0.9% 30ML VIAL IJ ONE (09:56)
[2019-01-19] MEDS: PHENYTOIN SODIUM EXTENDED 100MG CAPSULE PO SCH ×2 (10:00→20:42)
[2019-01-19 13:00] VITALS: BP 145/93
[2019-01-19 16:00] VITALS: BP 136/90
[2019-01-19] MEDS: LEVETIRACETAM 1,000 MG in SODIUM CHLORIDE 0.9% 100 ML IV SCH ×2 (16:41→20:42)
[2019-01-19] MEDS ORDERED: MIDAZOLAM HCL 5 MG/5 ML VIAL IV PRN (18:05)
[2019-01-19] MEDS ORDERED: FENTANYL CITRATE/PF 50MCG/ML 2ML VIAL IV PRN (18:06)
[2019-01-19] MEDS ORDERED: FENTANYL CITRATE/PF 50MCG/ML 2ML VIAL ONE (18:06)
[2019-01-19] MEDS ORDERED: MIDAZOLAM HCL 5 MG/5 ML VIAL ONE (18:06)
[2019-01-19 20:00] VITALS: BP 136/83
[2019-01-20] VITALS: BP 126/86
[2019-01-20] MEDS: CEFEPIME 2,000 MG in DEXT 5% WATER 100 ML IV SCH ×3 (00:08→23:45)
[2019-01-20] MEDS: IPRATROPIUM/ALBUTEROL 0.5-3(2.5)MG/3ML NEB HHN SCH ×4 (01:35→21:54)
[2019-01-20 04:00] VITALS: BP 122/81
[2019-01-20] MEDS: ACETAMINOPHEN 650MG SUPP PR PRN (05:23)
[2019-01-20 07:42] LABS: BASOPHILS % 0.3 % (0.0-2.0); EOSINOPHILS % 0.5 % (0.0-5.0); HEMATOCRIT. 40.8 % (42.0-52.0); HEMOGLOBIN. 13.7 g/dL (14.0-18.0); LYMPHOCYTES % 8.1 % (20.0-50.0); MEAN CORPUSCULAR HEMOGLOBIN 31.1 pg (28.0-32.0); MEAN CORPUSCULAR VOLUME 92.4 fL (80.0-94.0); MEAN PLATELET VOLUME 10.6 fl (7.4-10.4); MONOCYTES % 5.5 % (2.0-8.0); NEUTROPHILS % 85.6 % (40.0-76.0); PLATELET 229 x1000/uL (130-400); RED BLOOD CELL COUNT 4.42 mill/uL (4.7-6.1); RED CELL DISTRIBUTION WIDTH 12.8 % (11.6-14.6)
[2019-01-20 08:00] VITALS: BP 130/85
[2019-01-20] MEDS: DOCUSATE SODIUM SUGAR FREE 100MG/10ML UDC NG SCH (09:29)
[2019-01-20] MEDS: PANTOPRAZOLE SODIUM 40 MG/VIAL IV SCH (09:29)
[2019-01-20] MEDS: FERROUS SULFATE 300MG/5ML UDC PO SCH ×3 (09:29→18:12)
[2019-01-20] MEDS: RISPERIDONE 0.5MG TABLET PO SCH ×2 (09:30→20:36)
[2019-01-20] MEDS: LEVETIRACETAM 1,000 MG in SODIUM CHLORIDE 0.9% 100 ML IV SCH ×2 (09:30→21:48)
[2019-01-20] MEDS: ENOXAPARIN 40MG/0.4ML SYR SUBCUT SCH (09:30)
[2019-01-20] MEDS: POLYETHYLENE GLYCOL 3350 (17GM) 1 DOSE PACK PO SCH (09:30)
[2019-01-20] MEDS: PHENYTOIN SODIUM EXTENDED 100MG CAPSULE PO SCH ×2 (09:31→20:36)
[2019-01-20 09:55] LABS: CHLORIDE 111 mEq/L (98-107)
[2019-01-20] MEDS ORDERED: FENTANYL CITRATE/PF 50MCG/ML 2ML VIAL ONE (09:59)
[2019-01-20 12:36] VITALS: BP 125/82
[2019-01-20 16:24] VITALS: BP 139/91
[2019-01-20] MEDS: ACETAMINOPHEN 325MG TABLET PO PRN (16:43)
[2019-01-20 20:20] VITALS: BP 126/88
[2019-01-21] VITALS (7 sets, daily range): BP systolic 111–131; BP diastolic 77–89
[2019-01-21] MEDS: IPRATROPIUM/ALBUTEROL 0.5-3(2.5)MG/3ML NEB HHN SCH ×3 (01:45→18:02)
[2019-01-21 07:14] LABS: BASOPHILS % 0.5 % (0.0-2.0); EOSINOPHILS % 1.5 % (0.0-5.0); HEMATOCRIT. 39.6 % (42.0-52.0); HEMOGLOBIN. 13.6 g/dL (14.0-18.0); LYMPHOCYTES % 10.4 % (20.0-50.0); MEAN CORPUSCULAR HEMOGLOBIN 31.9 pg (28.0-32.0); MEAN CORPUSCULAR VOLUME 92.4 fL (80.0-94.0); MEAN PLATELET VOLUME 10.9 fl (7.4-10.4); MONOCYTES % 7.4 % (2.0-8.0); NEUTROPHILS % 80.2 % (40.0-76.0); PLATELET 224 x1000/uL (130-400); RED BLOOD CELL COUNT 4.28 mill/uL (4.7-6.1)
[2019-01-21 07:30] LABS: CHLORIDE 110 mEq/L (98-107)
[2019-01-21] MEDS ORDERED: POTASSIUM CHLORIDE 20MEQ/PACKET PO NR (08:15)
[2019-01-21] MEDS: DOCUSATE SODIUM SUGAR FREE 100MG/10ML UDC NG SCH (09:41)
[2019-01-21] MEDS: PHENYTOIN SODIUM EXTENDED 100MG CAPSULE PO SCH ×2 (09:41→21:09)
[2019-01-21] MEDS: FERROUS SULFATE 300MG/5ML UDC PO SCH ×3 (09:41→18:10)
[2019-01-21] MEDS: LEVETIRACETAM 1,000 MG in SODIUM CHLORIDE 0.9% 100 ML IV SCH ×2 (09:41→21:09)
[2019-01-21] MEDS: POLYETHYLENE GLYCOL 3350 (17GM) 1 DOSE PACK PO SCH (09:41)
[2019-01-21] MEDS: PANTOPRAZOLE SODIUM 40 MG/VIAL IV SCH (09:42)
[2019-01-21] MEDS: RISPERIDONE 0.5MG TABLET PO SCH ×2 (09:42→21:08)
[2019-01-21] MEDS: ACETAMINOPHEN 325MG TABLET PO PRN ×2 (09:44→22:54)
[2019-01-21] MEDS: ENOXAPARIN 40MG/0.4ML SYR SUBCUT SCH (09:48)
[2019-01-21] MEDS: CEFEPIME 2,000 MG in DEXT 5% WATER 100 ML IV SCH (13:00)
[2019-01-22] MEDS: CEFEPIME 2,000 MG in DEXT 5% WATER 100 ML IV SCH ×3 (00:08→23:53)
[2019-01-22] MEDS: IPRATROPIUM/ALBUTEROL 0.5-3(2.5)MG/3ML NEB HHN SCH ×4 (02:10→21:15)
[2019-01-22 03:44] VITALS: BP 126/69
[2019-01-22] MEDS: ACETAMINOPHEN 650MG SUPP PR PRN (04:11)
[2019-01-22 06:47] LABS: BASOPHILS % 0.3 % (0.0-2.0); CHLORIDE 111 mEq/L (98-107); EOSINOPHILS % 2.6 % (0.0-5.0); HEMATOCRIT. 39.6 % (42.0-52.0); HEMOGLOBIN. 13.7 g/dL (14.0-18.0); MEAN CORPUSCULAR HEMOGLOBIN 32.2 pg (28.0-32.0); MEAN CORPUSCULAR VOLUME 93.2 fL (80.0-94.0); MEAN PLATELET VOLUME 11.1 fl (7.4-10.4); MONOCYTES % 6.8 % (2.0-8.0); NEUTROPHILS % 79.3 % (40.0-76.0); PLATELET 207 x1000/uL (130-400); RED BLOOD CELL COUNT 4.25 mill/uL (4.7-6.1); RED CELL DISTRIBUTION WIDTH 13.4 % (11.6-14.6)
[2019-01-22 08:00] VITALS: BP 124/82
[2019-01-22] MEDS: DOCUSATE SODIUM SUGAR FREE 100MG/10ML UDC NG SCH (08:55)
[2019-01-22] MEDS: PANTOPRAZOLE SODIUM 40 MG/VIAL IV SCH (08:55)
[2019-01-22] MEDS: FERROUS SULFATE 300MG/5ML UDC PO SCH ×3 (08:55→18:04)
[2019-01-22] MEDS: ENOXAPARIN 40MG/0.4ML SYR SUBCUT SCH (08:56)
[2019-01-22] MEDS: POLYETHYLENE GLYCOL 3350 (17GM) 1 DOSE PACK PO SCH (08:56)
[2019-01-22] MEDS: LEVETIRACETAM 1,000 MG in SODIUM CHLORIDE 0.9% 100 ML IV SCH ×2 (08:56→21:36)
[2019-01-22] MEDS: RISPERIDONE 0.5MG TABLET PO SCH ×2 (08:56→21:36)
[2019-01-22] MEDS: PHENYTOIN 100 MG/4 ML UDC PEG SCH ×2 (08:56→21:36)
[2019-01-22] MEDS ORDERED: POTASSIUM CHLORIDE 20MEQ/PACKET PO SCH (09:45)
[2019-01-22] MEDS ORDERED: DEXT 5% WATER 500 ML IV ONE (09:45)
[2019-01-22 10:06] LABS: PHOSPHORUS 2.7 mg/dL (2.5-4.9)
[2019-01-22 12:00] VITALS: BP 119/79
[2019-01-22 16:00] VITALS: BP 136/65
[2019-01-22 20:00] VITALS: BP 127/87
[2019-01-23] VITALS: BP 121/76
[2019-01-23] MEDS: IPRATROPIUM/ALBUTEROL 0.5-3(2.5)MG/3ML NEB HHN SCH ×4 (01:10→21:09)
[2019-01-23 04:00] VITALS: BP 120/72
[2019-01-23 06:12] LABS: CHLORIDE 110 mEq/L (98-107)
[2019-01-23 06:18] LABS: BASOPHILS % 0.3 % (0.0-2.0); EOSINOPHILS % 2.5 % (0.0-5.0); HEMATOCRIT. 38.2 % (42.0-52.0); HEMOGLOBIN. 13.2 g/dL (14.0-18.0); LYMPHOCYTES % 12.4 % (20.0-50.0); MEAN CORPUSCULAR HEMOGLOBIN 32.1 pg (28.0-32.0); MEAN CORPUSCULAR VOLUME 93.3 fL (80.0-94.0); MEAN PLATELET VOLUME 11.2 fl (7.4-10.4); MONOCYTES % 5.5 % (2.0-8.0); NEUTROPHILS % 79.3 % (40.0-76.0); PLATELET 178 x1000/uL (130-400); RED CELL DISTRIBUTION WIDTH 13.4 % (11.6-14.6)
[2019-01-23 06:31] LABS: PHOSPHORUS 3.4 mg/dL (2.5-4.9)
[2019-01-23] MEDS: FERROUS SULFATE 300MG/5ML UDC PO SCH ×3 (06:34→17:49)
[2019-01-23 08:00] VITALS: BP 107/81
[2019-01-23] MEDS: POLYETHYLENE GLYCOL 3350 (17GM) 1 DOSE PACK PO SCH (10:06)
[2019-01-23] MEDS: RISPERIDONE 0.5MG TABLET PO SCH ×2 (10:06→20:18)
[2019-01-23] MEDS: LEVETIRACETAM 1,000 MG in SODIUM CHLORIDE 0.9% 100 ML IV SCH ×2 (10:06→21:11)
[2019-01-23] MEDS: DOCUSATE SODIUM SUGAR FREE 100MG/10ML UDC NG SCH (10:06)
[2019-01-23] MEDS: PHENYTOIN 100 MG/4 ML UDC PEG SCH ×2 (10:06→20:18)
[2019-01-23] MEDS: PANTOPRAZOLE SODIUM 40 MG/VIAL IV SCH (10:06)
[2019-01-23] MEDS: ENOXAPARIN 40MG/0.4ML SYR SUBCUT SCH (10:07)
[2019-01-23 12:00] VITALS: BP 118/77
[2019-01-23] MEDS: CEFEPIME 2,000 MG in DEXT 5% WATER 100 ML IV SCH (12:09)
[2019-01-23 16:00] VITALS: BP 119/80
[2019-01-23 20:00] VITALS: BP 135/87
[2019-01-24] VITALS: BP 127/84
[2019-01-24] MEDS: IPRATROPIUM/ALBUTEROL 0.5-3(2.5)MG/3ML NEB HHN SCH ×3 (02:00→20:18)
[2019-01-24] MEDS: CEFEPIME 2,000 MG in DEXT 5% WATER 100 ML IV SCH ×2 (02:12→12:28)
[2019-01-24 04:00] VITALS: BP 126/80
[2019-01-24 06:49] LABS: BASOPHILS % 0.5 % (0.0-2.0); EOSINOPHILS % 1.9 % (0.0-5.0); HEMATOCRIT. 38.6 % (42.0-52.0); HEMOGLOBIN. 13.3 g/dL (14.0-18.0); LYMPHOCYTES % 9.9 % (20.0-50.0); MEAN CORPUSCULAR HEMOGLOBIN 32.2 pg (28.0-32.0); MEAN CORPUSCULAR VOLUME 93.4 fL (80.0-94.0); MEAN PLATELET VOLUME 11.3 fl (7.4-10.4); MONOCYTES % 5.5 % (2.0-8.0); NEUTROPHILS % 82.2 % (40.0-76.0); PLATELET 197 x1000/uL (130-400); RED BLOOD CELL COUNT 4.13 mill/uL (4.7-6.1); RED CELL DISTRIBUTION WIDTH 13.6 % (11.6-14.6)
[2019-01-24 08:00] VITALS: BP 110/77
[2019-01-24] MEDS: PANTOPRAZOLE SODIUM 40 MG/VIAL IV SCH (08:11)
[2019-01-24] MEDS: FERROUS SULFATE 300MG/5ML UDC PO SCH ×3 (08:11→18:06)
[2019-01-24] MEDS: PHENYTOIN 100 MG/4 ML UDC PEG SCH ×2 (08:11→21:00)
[2019-01-24] MEDS: DOCUSATE SODIUM SUGAR FREE 100MG/10ML UDC NG SCH (08:11)
[2019-01-24] MEDS: LEVETIRACETAM 1,000 MG in SODIUM CHLORIDE 0.9% 100 ML IV SCH ×2 (08:11→21:00)
[2019-01-24] MEDS: POLYETHYLENE GLYCOL 3350 (17GM) 1 DOSE PACK PO SCH (08:11)
[2019-01-24] MEDS: ENOXAPARIN 40MG/0.4ML SYR SUBCUT SCH (08:11)
[2019-01-24] MEDS: RISPERIDONE 0.5MG TABLET PO SCH ×2 (08:12→21:00)
[2019-01-24 08:57] LABS: CHLORIDE 109 mEq/L (98-107)
[2019-01-24 12:06] VITALS: BP 126/82
[2019-01-24 15:52] VITALS: BP 108/77
[2019-01-24 20:00] VITALS: BP 114/82
[2019-01-25] VITALS (7 sets, daily range): BP systolic 112–130; BP diastolic 70–84
[2019-01-25] MEDS: IPRATROPIUM/ALBUTEROL 0.5-3(2.5)MG/3ML NEB HHN SCH ×4 (01:34→21:53)
[2019-01-25 06:29] LABS: BASOPHILS % 0.4 % (0.0-2.0); EOSINOPHILS % 3.4 % (0.0-5.0); HEMATOCRIT. 38.6 % (42.0-52.0); HEMOGLOBIN. 13.5 g/dL (14.0-18.0); MEAN CORPUSCULAR HEMOGLOBIN 32.2 pg (28.0-32.0); MEAN CORPUSCULAR VOLUME 92.2 fL (80.0-94.0); MEAN PLATELET VOLUME 11.7 fl (7.4-10.4); MONOCYTES % 6.1 % (2.0-8.0); NEUTROPHILS % 74.1 % (40.0-76.0); PLATELET 190 x1000/uL (130-400); RED BLOOD CELL COUNT 4.19 mill/uL (4.7-6.1); RED CELL DISTRIBUTION WIDTH 13.7 % (11.6-14.6)
[2019-01-25 06:42] LABS: CHLORIDE 108 mEq/L (98-107)
[2019-01-25] MEDS: RISPERIDONE 0.5MG TABLET PO SCH ×2 (08:05→22:13)
[2019-01-25] MEDS: FERROUS SULFATE 300MG/5ML UDC PO SCH ×3 (08:05→16:38)
[2019-01-25] MEDS: PANTOPRAZOLE SODIUM 40 MG/VIAL IV SCH (08:05)
[2019-01-25] MEDS: POLYETHYLENE GLYCOL 3350 (17GM) 1 DOSE PACK PO SCH (08:05)
[2019-01-25] MEDS: ENOXAPARIN 40MG/0.4ML SYR SUBCUT SCH (08:06)
[2019-01-25] MEDS: LEVETIRACETAM 1,000 MG in SODIUM CHLORIDE 0.9% 100 ML IV SCH ×2 (09:13→21:03)
[2019-01-25] MEDS: CARBAMAZEPINE 100MG TABLET CHEW PO SCH ×2 (09:14→16:39)
[2019-01-25] MEDS: DOCUSATE SODIUM SUGAR FREE 100MG/10ML UDC NG SCH (12:23)
[2019-01-25] MEDS: ACETAMINOPHEN 325MG TABLET PO PRN (17:15)
[2019-01-26] MEDS: IPRATROPIUM/ALBUTEROL 0.5-3(2.5)MG/3ML NEB HHN SCH ×2 (02:07→13:11)
[2019-01-26 03:55] VITALS: BP 114/81
[2019-01-26 07:09] LABS: BASOPHILS % 0.4 % (0.0-2.0); EOSINOPHILS % 2.9 % (0.0-5.0); HEMATOCRIT. 39.3 % (42.0-52.0); HEMOGLOBIN. 13.6 g/dL (14.0-18.0); LYMPHOCYTES % 16.1 % (20.0-50.0); MEAN CORPUSCULAR HEMOGLOBIN 31.8 pg (28.0-32.0); MEAN CORPUSCULAR VOLUME 92.1 fL (80.0-94.0); MEAN PLATELET VOLUME 11.7 fl (7.4-10.4); MONOCYTES % 6.3 % (2.0-8.0); NEUTROPHILS % 74.3 % (40.0-76.0); PLATELET 204 x1000/uL (130-400); RED BLOOD CELL COUNT 4.27 mill/uL (4.7-6.1); RED CELL DISTRIBUTION WIDTH 13.5 % (11.6-14.6)
[2019-01-26 07:26] LABS: CHLORIDE 107 mEq/L (98-107)
[2019-01-26 08:00] VITALS: BP 116/78
[2019-01-26] MEDS: DOCUSATE SODIUM SUGAR FREE 100MG/10ML UDC NG SCH (09:33)
[2019-01-26] MEDS: FERROUS SULFATE 300MG/5ML UDC PO SCH ×3 (09:33→17:55)
[2019-01-26] MEDS: POLYETHYLENE GLYCOL 3350 (17GM) 1 DOSE PACK PO SCH (09:34)
[2019-01-26] MEDS: ENOXAPARIN 40MG/0.4ML SYR SUBCUT SCH (09:34)
[2019-01-26] MEDS: CARBAMAZEPINE 100MG TABLET CHEW PO SCH ×2 (09:34→17:55)
[2019-01-26] MEDS: RISPERIDONE 0.5MG TABLET PO SCH ×2 (09:34→21:35)
[2019-01-26] MEDS: LEVETIRACETAM 1,000 MG in SODIUM CHLORIDE 0.9% 100 ML IV SCH ×2 (09:49→21:54)
[2019-01-26] MEDS: PANTOPRAZOLE SODIUM 40 MG/VIAL IV SCH (09:49)
[2019-01-26 12:00] VITALS: BP 127/90
[2019-01-26 16:00] VITALS: BP 132/83
[2019-01-26 20:00] VITALS: BP 116/77
[2019-01-27] VITALS: BP 121/85
[2019-01-27 04:00] VITALS: BP 112/76
[2019-01-27 06:10] LABS: BASOPHILS % 0.5 % (0.0-2.0); HEMATOCRIT. 40.7 % (42.0-52.0); LYMPHOCYTES % 13.9 % (20.0-50.0); MEAN CORPUSCULAR HEMOGLOBIN 31.7 pg (28.0-32.0); MEAN CORPUSCULAR VOLUME 92.4 fL (80.0-94.0); MEAN PLATELET VOLUME 11.5 fl (7.4-10.4); MONOCYTES % 6.5 % (2.0-8.0); NEUTROPHILS % 76.1 % (40.0-76.0); PLATELET 189 x1000/uL (130-400); RED CELL DISTRIBUTION WIDTH 13.9 % (11.6-14.6)
[2019-01-27 06:20] LABS: CHLORIDE 106 mEq/L (98-107)
[2019-01-27 08:00] VITALS: BP 127/80
[2019-01-27] MEDS: PANTOPRAZOLE SODIUM 40 MG/VIAL IV SCH (09:44)
[2019-01-27] MEDS: CARBAMAZEPINE 100MG TABLET CHEW PO SCH ×2 (09:44→17:48)
[2019-01-27] MEDS: POLYETHYLENE GLYCOL 3350 (17GM) 1 DOSE PACK PO SCH (09:44)
[2019-01-27] MEDS: FERROUS SULFATE 300MG/5ML UDC PO SCH ×3 (09:45→17:48)
[2019-01-27] MEDS: DOCUSATE SODIUM SUGAR FREE 100MG/10ML UDC NG SCH (09:45)
[2019-01-27] MEDS: RISPERIDONE 0.5MG TABLET PO SCH ×2 (09:45→21:13)
[2019-01-27] MEDS: ENOXAPARIN 40MG/0.4ML SYR SUBCUT SCH (09:46)
[2019-01-27] MEDS: LEVETIRACETAM 1,000 MG in SODIUM CHLORIDE 0.9% 100 ML IV SCH ×2 (10:40→21:13)
[2019-01-27 12:00] VITALS: BP 110/76
[2019-01-27 16:00] VITALS: BP 132/88
[2019-01-27 20:00] VITALS: BP 127/77
[2019-01-27] MEDS: IPRATROPIUM/ALBUTEROL 0.5-3(2.5)MG/3ML NEB HHN SCH (20:03)
[2019-01-28] VITALS: BP 110/87
[2019-01-28] MEDS: IPRATROPIUM/ALBUTEROL 0.5-3(2.5)MG/3ML NEB HHN SCH (01:11)
[2019-01-28 04:00] VITALS: BP 112/84
[2019-01-28] MEDS: FERROUS SULFATE 300MG/5ML UDC PO SCH ×2 (07:50→12:50)
[2019-01-28 08:00] VITALS: BP 120/81
[2019-01-28] MEDS: CARBAMAZEPINE 100MG TABLET CHEW PO SCH (09:29)
[2019-01-28] MEDS: POLYETHYLENE GLYCOL 3350 (17GM) 1 DOSE PACK PO SCH (09:30)
[2019-01-28] MEDS: DOCUSATE SODIUM SUGAR FREE 100MG/10ML UDC NG SCH (09:30)
[2019-01-28] MEDS: PANTOPRAZOLE SODIUM 40 MG/VIAL IV SCH (09:30)
[2019-01-28] MEDS: ENOXAPARIN 40MG/0.4ML SYR SUBCUT SCH (09:30)
[2019-01-28] MEDS: RISPERIDONE 0.5MG TABLET PO SCH (09:30)
[2019-01-28] MEDS: LEVETIRACETAM 1,000 MG in SODIUM CHLORIDE 0.9% 100 ML IV SCH (09:30)
[2019-01-28 12:00] VITALS: BP 105/72
[2019-01-28] MEDS: LACTULOSE 20G/30ML UDC PO PRN (12:08)
[2019-01-28] MEDS ORDERED: RISP05 PO (12:14)
[2019-01-28] MEDS ORDERED: DOCU50LI14 NG (12:14)
[2019-01-28] MEDS ORDERED: POLY17PO3 PO (12:14)
[2019-01-28] MEDS ORDERED: LEVE1000 MT (12:14)
[2019-01-28] MEDS ORDERED: FERR325T6 MT (12:14)
[2019-01-28] MEDS ORDERED: PROT40 MT (12:14)
[2019-01-28] MEDS ORDERED: CARB100T4 PO (12:14)
[2019-01-28 13:43] VITALS: BP 105/72
== END 2019-01-28 16:10 | DRG 720 ==
LOC: ER 08:25 → 6WST 12:17 → EDBEDREQ 12:19 → ENRESERV 21:57 → MICUSO 01-03 09:52 → 3WST 01-13 23:17 → MICUSO 01-16 18:11 → 6WST 01-17 16:37 → 6EST 01-26 18:32
PROVIDERS: ADMIT Internal Medicine; ATTEND Internal Medicine
PROC: 009U3ZX Drainage of Spinal Canal, Percutaneous Approach, Diagnostic (ICD-10-PCS; 2019-01-01)
PROC: 0BH18EZ Insertion of Endotracheal Airway into Trachea, Via Natural or Artificial Opening Endoscopic (ICD-10-PCS; 2019-01-03)
PROC: 5A1955Z Respiratory Ventilation, Greater than 96 Consecutive Hours (ICD-10-PCS; principal; 2019-01-04)
PROC: 02HV33Z Insertion of Infusion Device into Superior Vena Cava, Percutaneous Approach (ICD-10-PCS; 2019-01-07)
PROC: B548ZZA Ultrasonography of Superior Vena Cava, Guidance (ICD-10-PCS; 2019-01-07)
PROC: 0DH63UZ Insertion of Feeding Device into Stomach, Percutaneous Approach (ICD-10-PCS; 2019-01-19)
DX: A41.9 Sepsis, unspecified organism (principal); J96.00 Acute respiratory failure, unspecified whether with hypoxia or hypercapnia; J69.0 Pneumonitis due to inhalation of food and vomit; G92 Toxic encephalopathy; L89.119 Pressure ulcer of right upper back, unspecified stage; E46 Unspecified protein-calorie malnutrition; K29.71 Gastritis, unspecified, with bleeding; R13.12 Dysphagia, oropharyngeal phase; E87.8 Other disorders of electrolyte and fluid balance, not elsewhere classified; E87.6 Hypokalemia; G40.901 Epilepsy, unspecified, not intractable, with status epilepticus; M62.82 Rhabdomyolysis; D50.9 Iron deficiency anemia, unspecified; E87.0 Hyperosmolality and hypernatremia; F20.9 Schizophrenia, unspecified; K44.9 Diaphragmatic hernia without obstruction or gangrene; F99 Mental disorder, not otherwise specified; L89.899 Pressure ulcer of other site, unspecified stage; N39.0 Urinary tract infection, site not specified; Z78.1 Physical restraint status; Z93.1 Gastrostomy status; Z68.29 Body mass index [BMI] 29.0-29.9, adult
CPT/HCPCS: 36415; 36569; 36600; 70486; 70551; 71045; 71250; 74018; 74176; 76937; 80048; 80061; 80185; 80202; 80305; 80320; 82140; 82375; 82542; 82550; 82553; 82607; 82728; 82746; 82805; 82945; 82962; 83036; 83540; 83550; 83605; 83735; 83873; 83880; 84100; 84132; 84134; 84145; 84157; 84439; 84443; 84478; 84481; 84484; 86038; 86592; 86658; 86663; 86788; 86789; 87070; 87389; 87802; 87899; 92610; 93005; 93970; 94003; 94640; 94667; 96365; 96366; 96375; 97110; 97112; 97163; 97164; 97167; 97168; 97530; 97535; 99285; A6261; C1725; C1893; C9113; J0692; J0696; J1165; J1650; J1953; J2060; J2250; J2405; J2704; J3010; J3370; J3480; J3490; J7030; J7040; J7050; J7060; J7070; J7608; J7620; A4315; G0480